=== PATIENT | male | born 1935 | race Caucasian/White ===

== ENCOUNTER 2017-09-06 18:34 | Emergency (ER) | payer OTHER ==
[~2017-09-06] VITALS: Ht 157.5 cm; Wt 64.0 kg
[~2017-09-06 18:34] MED LIST: ECO81 PO; LEVOTHYROXIN0.025 M2 PO; METOPROLOL TART25 M1 PO; ZES20 PO; ZOC20 PO
[2017-09-06 18:37] VITALS: BP 145/83
== END 2017-09-06 20:05 | disposition home or self-care (01) ==
LOC: ED 18:34
DX: S82.145A Nondisplaced bicondylar fracture of left tibia, initial encounter for closed fracture (principal); I10 Essential (primary) hypertension; X58.XXXA Exposure to other specified factors, initial encounter; Y93.89 Activity, other specified; Y92.89 Other specified places as the place of occurrence of the external cause; Y99.8 Other external cause status
CPT/HCPCS: 82962